=== PATIENT | female | born 1955 | race Caucasian/White ===

== ENCOUNTER 2019-11-17 12:42 | Emergency (ER) | payer MEDICARE, OTHER ==
--- NOTE | 2019-11-17 12:55 | EDM.PDOC ---
ED HPI GENERAL MEDICAL PROBLEM - General Stated Complaint: ER Time Seen by Provider: 11/17/19 12:45 Source of Information: Reports: Patient History Limitations: Reports: No Limitations - History of Present Illness INITIAL COMMENTS - FREE TEXT/NARRATIVE: Pt. presents to ER with complaints of fall with subsequent R femur pain. Pt. states that he has problems with balance which caused to to fall. She states that she has a history of bilateral total hip replacement. She denies any chest pain, shortness of breath, or lightheadedness prior to the fall. She states that she did lightly strike the R posteriolateral head but denies any LOC, nausea, vomiting, or continued pain. No headache. Denies any neck pain. She states that she fell from a standing height in her home. Pt. states that her pain was a "10" on 1-10 scale post fall. She states that her pain is now down to a "7' after dilaudid and the application of a traction splint by EMS. Onset: Today Onset Date: 11/17/19 Location: Reports: Lower Extremity, Right Quality: Reports: Ache, Sharp, Stabbing Severity: Severe Improves with: Reports: Medication, Rest Worsens with: Reports: Movement Right Thigh Pain Score (Numeric/FACES): 5 - Related Data Allergies Allergy/AdvReac Type Severity Reaction Status Date / Time No Known Allergies Allergy Verified 11/17/19 13:02 Home Meds: Home Meds Baclofen 10 mg BEDTIME 11/17/19 [History] Baclofen 20 mg WITHBREAKFAST 11/17/19 [History] FLUoxetine HCl [Fluoxetine HCl] 80 mg DAILY 11/17/19 [History] Nortriptyline 20 mg BEDTIME 11/17/19 [History] Oxybutynin 5 mg BID 11/17/19 [History] ED ROS GENERAL - Review of Systems Review Of Systems: See Below Constitutional: Reports: No Symptoms HEENT: Reports: No Symptoms Respiratory: Reports: No Symptoms Cardiovascular: Reports: No Symptoms Endocrine: Reports: No Symptoms GI/Abdominal: Reports: No Symptoms : Reports: No Symptoms Musculoskeletal: Reports: Leg Pain Skin: Reports: No Symptoms Neurological: Reports: No Symptoms Psychiatric: Reports: No Symptoms Hematologic/Lymphatic: Reports: No Symptoms Immunologic: Reports: No Symptoms ED EXAM, GENERAL - Physical Exam Exam: See Below Exam Limited By: No Limitations General Appearance: Alert, WD/WN, No Apparent Distress Eye Exam: Bilateral Eye: EOMI, Normal Fundi, Normal Inspection, PERRL Nose: Normal Inspection, Normal Mucosa, No Blood Throat/Mouth: Normal Inspection, Normal Lips, Normal Teeth, Normal Gums, Normal Oropharynx, Normal Voice, No Airway Compromise Head: Normocephalic, Other (small hematoma to R posterior scalp.) Neck: Normal Inspection, Supple, Non-Tender, Full Range of Motion Respiratory/Chest: No Respiratory Distress, Lungs Clear, Normal Breath Sounds, No Accessory Muscle Use, Chest Non-Tender Cardiovascular: Normal Peripheral Pulses, Regular Rate, Rhythm, No Edema, No Gallop, No JVD, No Murmur, No Rub GI/Abdominal: Soft, Non-Tender, No Organomegaly, No Distention, No Mass (Female) Exam: Deferred Rectal (Female) Exam: Deferred Back Exam: No: Paraspinal Tenderness, Vertebral Tenderness Extremities: Other (Hare traction splint in place. CMS to foot is intact, the foot is somewhat dusky distal to the ankle hitch, but her capillary refill is still within normal limits at 2-3 sec. Pt. is able to move digits of the foot. ) Neurological: Alert, Oriented, CN II-XII Intact, Normal Cognition, Normal Gait, Normal Reflexes, No Motor/Sensory Deficits Psychiatric: Normal Affect, Normal Mood Skin Exam: Warm, Dry, Intact, Normal Color, No Rash Lymphatic: No Adenopathy Course - Vital Signs Last Recorded V/S: Last Vital Signs Temp 36.6 C 11/17/19 12:44 Pulse 87 11/17/19 12:44 Resp 20 11/17/19 12:44 BP 133/76 11/17/19 12:44 Pulse Ox 94 L 11/17/19 12:44 - Orders/Labs/Meds Labs: Laboratory Tests 11/17/19 11/17/19 11/17/19 Range/Units 12:58 12:58 12:58 WBC 10.4 H (4.0-10.0) x10^3/uL RBC 4.87 (4.00-5.50) x10^6/uL Hgb 13.9 D (12.0-16.0) g/dL Hct 42.7 (33.0-47.0) % MCV 87.7 (78.0-93.0) fL MCH 28.5 (26.0-32.0) pg MCHC 32.6 (32.0-36.0) g/dL RDW Coeff of Hermes 13.4 (10.0-15.0) % Plt Count 266 D (130-400) x10^3/uL Neut % (Auto) 75.2 (50.0-80.0) % Lymph % (Auto) 16.7 L (25.0-50.0) % [place] % (Auto) 6.7 (2.0-11.0) % Eos % (Auto) 1.2 (0.0-4.0) % Baso % (Auto) 0.2 (0.2-1.2) % PT 9.9 L (10.0-12.8) SEC INR 0.9 L (2.0-3.5) Sodium 140 (136-145) mmol/L Potassium 4.5 (3.5-5.1) mmol/L Chloride 101 (98-107) mmol/L Carbon Dioxide 28 (21-32) mmol/L Anion Gap 15.5 (10-20) mmol/L BUN 12 (7-18) mg/dL Creatinine 0.7 (0.55-1.02) mg/dL Est Cr Clr Drug Dosing 79.52 mL/min Estimated GFR (MDRD) > 60 Glucose 108 H (74-106) mg/dL Calcium 8.6 (8.5-10.1) mg/dL Corrected Calcium 8.68 (8.5-10.1) mg/dL Total Bilirubin 0.3 (0.2-1.0) mg/dL AST 14 L (15-37) U/L ALT 29 (14-59) U/L Alkaline Phosphatase 91 (46-116) U/L Total Protein 7.1 (6.4-8.2) g/dL Albumin 3.9 (3.4-5.0) g/dL Globulin 3.2 Albumin/Globulin Ratio 1.22 Meds: Medications Discontinued Medications Generic Name Dose Route Start Last Admin Trade Name Freq PRN Reason Stop Dose Admin Hydromorphone HCl 1 mg 11/17/19 13:15 Dilaudid IVPUSH 11/17/19 13:16 ONETIME ONE - Radiology Interpretation Free Text/Narrative:: midshaft femur fracture of R lower extremity Departure - Departure Time of Disposition: 13:26 Disposition: DC/Tfer to Acute Hospital 02 Clinical Impression: Femur fracture, right - Discharge Information Sepsis Event Note - Focused Exam Vital Signs: Vital Signs Temp Pulse Resp BP Pulse Ox 11/17/19 12:44 36.6 C 87 20 133/76 94 L Date Exam was Performed: 11/17/19 Time Exam was Performed: 13:33 - Problem List Review Problem List Initiated/Reviewed/Updated: Yes - Assessment/Plan Plan: Pt. will be transferred to [facility] in [place]. Dr. May accepts the patient in transfer. [facility] was unable to accept the patient at they had no one who could take care of a periprosthetic fracture. Pain is under good control with IV dilaudid/traction. Pt. will be transported via [facility] ground ambulance.
[2019-11-17 13:23] LABS: CHLORIDE,CL 101 mmol/L (98-107); SODIUM,NA 140 mmol/L (136-145)
[2019-11-17 13:24] LABS: ANION GAP 15.5 mmol/L (10-20)
--- NOTE | 2019-11-17 13:28 | CR ---
[id number] RAD/RAD Femur Right 2V EXAM: 2 VIEWS RIGHT FEMUR INDICATION: FALL, RIGHT MID FEMUR PAIN. COMPARISON: None. DISCUSSION: Partially visualized post surgical changes of the proximal femur. There is an acute obliquely oriented fracture within the mid diaphysis distal to the orthopedic implants. The fracture is impacted with lateral displacement of approximately 1.1 cm. IMPRESSION: 1. Acute obliquely oriented mid diaphysis fracture of the right femur. Juanjo Min DO 11/17/19 1328 Thank you for allowing us to participate in the care of your patient.
[2019-11-17] MEDS: HYDROmorphone 1 MG/ML Syringe IVPUSH ONE (13:40)
== END 2019-11-17 14:20 | disposition short-term general hospital (02) ==
LOC: VM.ED 12:42
DX: S72.301A Unspecified fracture of shaft of right femur, initial encounter for closed fracture (principal); S00.03XA Contusion of scalp, initial encounter; Z96.643 Presence of artificial hip joint, bilateral; W19.XXXA Unspecified fall, initial encounter; W22.8XXA Striking against or struck by other objects, initial encounter
CPT/HCPCS: 36415; 73552; 80053; 85025; 85610; 96374; 99285; J1170; 99283-GF

== ENCOUNTER 2021-01-26 04:26 | Emergency (ER) | payer MEDICARE, OTHER ==
--- NOTE | 2021-01-26 04:38 | EDM.PDOC ---
ED HPI GENERAL MEDICAL PROBLEM - General Chief Complaint: Lower Extremity Injury/Pain Stated Complaint: hip pain Time Seen by Provider: 01/26/21 04:26 Source of Information: Reports: Patient History Limitations: Reports: No Limitations - History of Present Illness INITIAL COMMENTS - FREE TEXT/NARRATIVE: The emergency department by EMS with complaints of left hip injury. Patient recently had a hip replaced approximately 6 weeks ago at [facility] in [place]. Patient was lying in bed and she went to rotate herself and she felt a popping sensation and a huge amount of pain and discomfort on the left lower extremity. Patient was unable to ambulate after that. EMS was contacted for further transportation to the emergency department.Patient denies any falls or injuries to that left hip patient states that she is unable to move that left hip independently without significant amount of pain. Patient denies any CMS concerns but range of motion is extremely limited. Onset: Sudden Quality: Reports: Throbbing Severity: Severe Improves with: Reports: Rest Worsens with: Reports: Movement Associated Symptoms: Reports: No Other Symptoms - Related Data Allergies Allergy/AdvReac Type Severity Reaction Status Date / Time No Known Allergies Allergy Verified 11/17/19 13:02 Home Meds: Home Meds Baclofen 10 mg BEDTIME 11/17/19 [History] Baclofen 20 mg WITHBREAKFAST 11/17/19 [History] FLUoxetine HCl [Fluoxetine HCl] 80 mg DAILY 11/17/19 [History] Nortriptyline 20 mg BEDTIME 11/17/19 [History] Oxybutynin 5 mg BID 11/17/19 [History] Past Medical History Gastrointestinal History: Reports: GERD Genitourinary History: Reports: Other (See Below) Other Genitourinary History: cystitis with hematuria Neurological History: Reports: Other (See Below) Other Neuro History: Ataxia (SCA3) Psychiatric History: Reports: Depression Endocrine/Metabolic History: Reports: Osteopenia Hematologic History: Reports: Anemia, Iron Deficiency - Infectious Disease History Infectious Disease History: Reports: MRSA - Past Surgical History Musculoskeletal Surgical History: Reports: Hip Replacement Review of Systems - Review of Systems Review Of Systems: Comprehensive ROS is negative, except as noted in HPI. Constitutional: Reports: No Symptoms Eyes: Reports: No Symptoms Ears: Reports: No Symptoms Nose: Reports: No Symptoms Mouth/Throat: Reports: No Symptoms Respiratory: Reports: No Symptoms Cardiovascular: Reports: No Symptoms GI/Abdominal: Reports: No Symptoms Genitourinary: Reports: No Symptoms Musculoskeletal: Reports: No Symptoms Skin: Reports: No Symptoms Neurological: Reports: No Symptoms Psychiatric: Reports: No Symptoms ED EXAM, GENERAL - Physical Exam Exam: See Below Exam Limited By: No Limitations General Appearance: Alert, WD/WN, No Apparent Distress Eye Exam: Bilateral Eye: EOMI, PERRL Ears: Normal External Exam, Normal Canal Nose: Normal Inspection, Normal Mucosa, No Blood Throat/Mouth: Normal Inspection, Normal Lips, Normal Teeth, Normal Voice, No Airway Compromise Head: Atraumatic, Normocephalic Respiratory/Chest: No Respiratory Distress, Lungs Clear, Normal Breath Sounds, No Accessory Muscle Use, Chest Non-Tender Cardiovascular: Normal Peripheral Pulses, Regular Rate, Rhythm, No Rub Peripheral Pulses: 4+: Radial (L), Radial (R), Dorsalis Pedis (L), Dorsalis Pedis (R) GI/Abdominal: Normal Bowel Sounds, Soft, Non-Tender, No Organomegaly, No Abnormal Bruit Back Exam: Normal Inspection Neurological: Alert, Oriented Skin Exam: Warm, Dry, Intact Course - Orders/Labs/Meds Orders: Active Orders 24 hr Category Date Time Status Hip Min 1V w Pelvis Lt [CR] Stat Exams 01/26/21 04:32 Taken COMPREHENSIVE METABOLIC PN,CMP [CHEM] Stat Lab 01/26/21 05:00 Received Labs: Laboratory Tests 01/26/21 Range/Units 05:00 WBC 11.3 H (4.0-10.0) x10^3/uL RBC 4.49 (4.00-5.50) x10^6/uL Hgb 12.3 D (12.0-16.0) g/dL Hct 37.9 (33.0-47.0) % MCV 84.4 D (78.0-93.0) fL MCH 27.4 (26.0-32.0) pg MCHC 32.5 (32.0-36.0) g/dL RDW Coeff of Hermes 13.9 (10.0-15.0) % Plt Count 280 (130-400) x10^3/uL Neut % (Auto) 78.4 (50.0-80.0) % Lymph % (Auto) 13.4 L (25.0-50.0) % [place] % (Auto) 6.5 (2.0-11.0) % Eos % (Auto) 1.6 (0.0-4.0) % Baso % (Auto) 0.1 L (0.2-1.2) % Meds: Medications Discontinued Medications Generic Name Dose Route Start Last Admin Trade Name Ramseyq PRN Reason Stop Dose Admin Hydromorphone HCl Confirm 01/26/21 04:53 Hydromorphone 1 Mg/Ml Syringe Administered 01/26/21 04:54 Dose 1 mg .ROUTE .STK-MED ONE Midazolam HCl Confirm 01/26/21 04:53 Midazolam 1 Mg/Ml 2 Ml Sdv Administered 01/26/21 04:54 Dose 2 mg .ROUTE .STK-MED ONE Departure - Departure Time of Disposition: 05:45 Disposition: DC/Tfer to [facility] 02 Condition: Fair Clinical Impression: Hip dislocation, left Qualifiers: Encounter type: initial encounter Qualified Code(s): S73.005A - Unspecified dislocation of left hip, initial encounter - Discharge Information *PRESCRIPTION DRUG MONITORING PROGRAM REVIEWED*: Not Applicable *COPY OF PRESCRIPTION DRUG MONITORING REPORT IN PATIENT EDIN: Not Applicable Forms: ED Department Discharge, Interfacility Transfer EMTALA - My Orders Last 24 Hours: My Active Orders 01/26/21 04:32 Hip Min 1V w Pelvis Lt [CR] Stat 01/26/21 05:00 COMPREHENSIVE METABOLIC PN,CMP [CHEM] Stat - Assessment/Plan Last 24 Hours: My Active Orders 01/26/21 04:32 Hip Min 1V w Pelvis Lt [CR] Stat 01/26/21 05:00 COMPREHENSIVE METABOLIC PN,CMP [CHEM] Stat Assessment:: 1. Left hip injury 2. Left hip dislocation Plan: 1. Labs completed in the ER. Results reviewed with the patient 2. Xray completed in the ER. Results reviewed with the patient 3. IV fluids provided 4. Pain medication given for severe pain and discomfort- 5. Zofran given in the ER to help with nausea [facility]. Patient will be transferred to a higher level of care needing further medical and/or surgical interventions 8. Patient and nursing staff was updated regarding the plan of care 9. Patient and family are agreeable to the above plan of care 10. All questions and concerns were addressed with the patient and family prior to discharge
[2021-01-26] MEDS ORDERED: HYDROmorphone 1 MG/ML Syringe ONE (04:53)
[2021-01-26] MEDS ORDERED: Midazolam 1 MG/ML 2 ML SDV ONE (04:53)
[2021-01-26 05:26] LABS: CHLORIDE,CL 104 mmol/L (98-107); SODIUM,NA 140 mmol/L (136-145)
[2021-01-26 05:28] LABS: ANION GAP 10.8 mmol/L (5-15)
[2021-01-26] MEDS ORDERED: fentaNYL 50 MCG/ML SDV IVPUSH ONE (05:33)
--- NOTE | 2021-01-26 10:31 | CR ---
[id number] RAD/RAD Pelvis 1V W 2V Left Hip EXAM: 2 VIEWS LEFT HIP. INDICATION: LEFT INJURY COMPARISON: None. DISCUSSION: Acute dislocation involving the femoral component of left total hip arthroplasty. The femoral component is dislocated anterolaterally by approximately 6 cm. No evidence of hardware fracture or loosening. Postsurgical changes following total right hip arthroplasty. No evidence of hardware failure loosening. The right hip prosthesis remains in articulatory alignment. IMPRESSION: 1. As above. Juanjo Min DO 01/26/21 1029 Thank you for allowing us to participate in the care of your patient.
== END 2021-01-26 06:35 | disposition short-term general hospital (02) ==
LOC: VM.ED 04:26
DX: S73.005A Unspecified dislocation of left hip, initial encounter (principal); X58.XXXA Exposure to other specified factors, initial encounter
CPT/HCPCS: 36415; 51702; 80053; 85025; 96374; 99283; 99285-25; J3010

== ENCOUNTER 2021-02-17 07:24 | Emergency (ER) | payer MEDICARE, OTHER ==
--- NOTE | 2021-02-17 07:35 | EDM.PDOC ---
ED HPI GENERAL MEDICAL PROBLEM - General Stated Complaint: ER Time Seen by Provider: 02/17/21 07:30 Source of Information: Reports: Patient, EMS, EMS Notes Reviewed, RN, RN Notes Reviewed History Limitations: Reports: No Limitations - History of Present Illness INITIAL COMMENTS - FREE TEXT/NARRATIVE: Patient is a 65-year-old female who presents to ER per [facility] ambulance service with complaint of dislocation of left hip. Patient states she has a prosthetic hip surgery was completed in November of this year. States she was wearing her brace last night, attempted to turn over in bed and the left hip dislocated. States she also dislocated the hip on January 26. Patient had 5 mg of Valium in route per EMS as well as 1 mg of Dilaudid. Patient still rating pain high. Patient admits to some numbness and tingling to the left leg/foot. Onset: Today, Sudden - Related Data Allergies Allergy/AdvReac Type Severity Reaction Status Date / Time No Known Allergies Allergy Verified 01/26/21 06:40 Home Meds: Home Meds Baclofen 10 mg PO BEDTIME 11/17/19 [History] Baclofen 20 mg PO WITHBREAKFAST 11/17/19 [History] FLUoxetine HCl [Fluoxetine HCl] 80 mg PO DAILY 11/17/19 [History] Nortriptyline 20 mg PO BEDTIME 11/17/19 [History] Oxybutynin 5 mg PO BID 11/17/19 [History] Past Medical History Gastrointestinal History: Reports: GERD Genitourinary History: Reports: Other (See Below) Other Genitourinary History: cystitis with hematuria Neurological History: Reports: Other (See Below) Other Neuro History: Ataxia (SCA3) Psychiatric History: Reports: Depression Endocrine/Metabolic History: Reports: Osteopenia Hematologic History: Reports: Anemia, Iron Deficiency - Infectious Disease History Infectious Disease History: Reports: MRSA - Past Surgical History Musculoskeletal Surgical History: Reports: Hip Replacement Social & Family History - Family History Family Medical History: No Pertinent Family History Review of Systems - Review of Systems Review Of Systems: Comprehensive ROS is negative, except as noted in HPI. ED EXAM, GENERAL - Physical Exam Exam: See Below Exam Limited By: No Limitations General Appearance: Alert, WD/WN, No Apparent Distress Eye Exam: Bilateral Eye: EOMI, Normal Inspection Ears: Normal External Exam, Hearing Grossly Normal Nose: Normal Inspection Throat/Mouth: Normal Inspection, Normal Voice, No Airway Compromise Head: Atraumatic, Normocephalic Neck: Normal Inspection, Supple, Non-Tender, Full Range of Motion Respiratory/Chest: No Respiratory Distress, Lungs Clear, Normal Breath Sounds, No Accessory Muscle Use, Chest Non-Tender Cardiovascular: Normal Peripheral Pulses, Regular Rate, Rhythm, No Edema, No Gallop, No JVD, No Murmur, No Rub Peripheral Pulses: 1+: Dorsalis Pedis (L), 2+: Radial (L), Radial (R), Dorsalis Pedis (R) GI/Abdominal: Normal Bowel Sounds, Soft, Non-Tender (Female) Exam: Deferred Rectal (Female) Exam: Deferred Back Exam: Normal Inspection, Full Range of Motion, NT Extremities: Leg Pain (left), Limited Range of Motion (left leg), Other (left leg shortened) Neurological: Alert, Oriented, Normal Cognition Psychiatric: Normal Affect, Normal Mood, Anxious, Tearful Skin Exam: Warm, Dry, Intact, Normal Color, No Rash Lymphatic: No Adenopathy Course - Orders/Labs/Meds Orders: Active Orders 24 hr Category Date Time Status Insert Wright Catheter [Insert Urinary Catheter] [OM.PC] Care 02/17/21 08:00 Ordered Q24H Urinary Catheter Assessment [RC] ASDIRECTED Care 02/17/21 07:53 Active Hip Min 2V or 3V Lt [CR] Stat Exams 02/17/21 07:33 Taken COMPREHENSIVE METABOLIC PN,CMP [CHEM] Stat Lab 02/17/21 08:05 Received CORONAVIRUS COVID-19 RAPID [MOLEC] Stat Lab 02/17/21 08:29 Ordered Lactated Ringers [Ringers, Lactated] 1,000 ml Med 02/17/21 07:53 Active IV ONETIME Medication Orders Lactated Ringer's (Ringers, Lactated) 1,000 mls @ 100 mls/hr IV ONETIME ONE Stop: 02/17/21 17:52 Labs: Laboratory Tests 02/17/21 Range/Units 08:05 WBC 7.6 (4.0-10.0) x10^3/uL RBC 4.75 (4.00-5.50) x10^6/uL Hgb 13.0 (12.0-16.0) g/dL Hct 40.1 (33.0-47.0) % MCV 84.4 (78.0-93.0) fL MCH 27.4 (26.0-32.0) pg MCHC 32.4 (32.0-36.0) g/dL RDW Coeff of Hermes 14.4 (10.0-15.0) % Plt Count 296 (130-400) x10^3/uL Neut % (Auto) 70.2 (50.0-80.0) % Lymph % (Auto) 18.4 L (25.0-50.0) % [place] % (Auto) 8.9 (2.0-11.0) % Eos % (Auto) 2.4 (0.0-4.0) % Baso % (Auto) 0.1 L (0.2-1.2) % Meds: Medications Generic Name Dose Route Start Last Admin Trade Name Freq PRN Reason Stop Dose Admin Lactated Ringer's 1,000 mls @ 100 mls/hr 02/17/21 07:53 Ringers, Lactated IV 02/17/21 17:52 ONETIME ONE Discontinued Medications Generic Name Dose Route Start Last Admin Trade Name Freq PRN Reason Stop Dose Admin Fentanyl 100 mcg 02/17/21 08:07 Fentanyl 100 Mcg/2 Ml Sdv IVPUSH 02/17/21 08:08 ONETIME ONE - Re-Assessments/Exams Free Text/Narrative Re-Assessment/Exam: 02/17/21 08:23 Discussed patient case with Dr. Jaquez in the ER at [facility] who agreed to accept the patient for transfer. Departure - Departure Time of Disposition: 08:24 Disposition: DC/Tfer to Acute Hospital 02 Condition: Fair Clinical Impression: Hip dislocation, left Qualifiers: Encounter type: initial encounter Qualified Code(s): S73.005A - Unspecified dislocation of left hip, initial encounter - Discharge Information *PRESCRIPTION DRUG MONITORING PROGRAM REVIEWED*: No *COPY OF PRESCRIPTION DRUG MONITORING REPORT IN PATIENT EDIN: No Forms: Interfacility Transfer EMTALA - My Orders Last 24 Hours: My Active Orders 02/17/21 07:33 Hip Min 2V or 3V Lt [CR] Stat 02/17/21 07:53 Urinary Catheter Assessment [RC] ASDIRECTED Lactated Ringers [Ringers, Lactated] 1,000 ml IV ONETIME 02/17/21 08:00 Insert Wright Catheter [Insert Urinary Catheter] [OM.PC] Q24H 02/17/21 08:05 COMPREHENSIVE METABOLIC PN,CMP [CHEM] Stat 02/17/21 08:29 CORONAVIRUS COVID-19 RAPID [MOLEC] Stat - Assessment/Plan Last 24 Hours: My Active Orders 02/17/21 07:33 Hip Min 2V or 3V Lt [CR] Stat 02/17/21 07:53 Urinary Catheter Assessment [RC] ASDIRECTED Lactated Ringers [Ringers, Lactated] 1,000 ml IV ONETIME 02/17/21 08:00 Insert Wright Catheter [Insert Urinary Catheter] [OM.PC] Q24H 02/17/21 08:05 COMPREHENSIVE METABOLIC PN,CMP [CHEM] Stat 02/17/21 08:29 CORONAVIRUS COVID-19 RAPID [MOLEC] Stat
[2021-02-17] MEDS: Lactated Ringers 1,000 ML IV ONE (08:05)
[2021-02-17] MEDS: fentaNYL 100 MCG/2 ML SDV IVPUSH ONE (08:32)
--- NOTE | 2021-02-17 08:34 | CR ---
[id number] RAD/RAD Hip Left 2-3V EXAM: RAD Hip Left 2-3V CLINICAL DATA: DISLOCATION OF HIP PROSTHESIS COMPARISON: CORRELATION IS MADE WITH JANUARY 26, 2021 FINDINGS: Dislocation again is seen The lateral view does not clearly demonstrate if the dislocation is anterior or posterior The dislocation actually appears to be superior. IMPRESSION: DISLOCATED PROSTHESIS AGAIN SEEN Perfecto Mueller MD 02/17/21 0832 Thank you for allowing us to participate in the care of your patient.
[2021-02-17 08:38] LABS: CHLORIDE,CL 104 mmol/L (98-107); SODIUM,NA 141 mmol/L (136-145)
[2021-02-17 08:40] LABS: ANION GAP 11.8 mmol/L (5-15)
== END 2021-02-17 08:50 | disposition short-term general hospital (02) ==
LOC: VM.ED 07:24
DX: S73.005A Unspecified dislocation of left hip, initial encounter (principal); Z20.822 Contact with and (suspected) exposure to COVID-19; X58.XXXA Exposure to other specified factors, initial encounter
CPT/HCPCS: 36415; 51702; 80053; 85025; 94760; 96374; 99283; 99285-25; J3010; J7120; U0002

== ENCOUNTER 2021-04-21 05:47 | Emergency (ER) | payer MEDICARE, OTHER ==
[2021-04-21] MEDS ORDERED: fentaNYL 100 MCG/2 ML SDV IVPUSH ONE (06:02)
[2021-04-21] MEDS ORDERED: Ondansetron 4 MG/2 ML SDV IVPUSH ONE (06:02)
--- NOTE | 2021-04-21 06:23 | EDM.PDOC ---
ED HPI GENERAL MEDICAL PROBLEM - General Chief Complaint: Lower Extremity Injury/Pain Stated Complaint: left hip injury Time Seen by Provider: 04/21/21 06:00 Source of Information: Reports: Patient, EMS History Limitations: Reports: No Limitations - History of Present Illness INITIAL COMMENTS - FREE TEXT/NARRATIVE: Patient presents to the ED via EMS with her third hip dislocation of her left hip since [facility]. She states she rolled over in bed and dislocated her hip. She had been wearing hip abduction brace for about a month since her last dislocation on 02/17. She has been transported to [place] each time this occurs. She did have a discussion with orthopedic surgery as to a corrective surgery but nothing has been scheduled at this time. Per her and a picture he has of her last dislocation, she was given heavy sedation and it took several physicians and several attempts to relocate this last time. Unable to do conscious sedation at this facility. Patient has started neurosin 300 mg BID since she was last here and this helps her other co morbid problems. Denies any injury, not been ill recently. 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 Last meds yesterday, does take baclofen Onset: Today Location: Reports: Lower Extremity, Left Severity: Moderate Improves with: Reports: None Worsens with: Reports: Movement Associated Symptoms: Reports: No Other Symptoms Treatments DIRECTOR INVESTOR RELATIONS: Reports: Other (see below) Other Treatments DIRECTOR INVESTOR RELATIONS: Morphine 4mg. Left Hip Pain Score (Numeric/FACES): 10 - Related Data Allergies Allergy/AdvReac Type Severity Reaction Status Date / Time No Known Allergies Allergy Verified 02/17/21 08:34 Home Meds: Home Meds Baclofen 10 mg PO BEDTIME 11/17/19 [History] Baclofen 20 mg PO WITHBREAKFAST 11/17/19 [History] FLUoxetine HCl [Fluoxetine HCl] 80 mg PO DAILY 11/17/19 [History] Nortriptyline 20 mg PO BEDTIME 11/17/19 [History] Oxybutynin 5 mg PO BID 11/17/19 [History] Past Medical History Gastrointestinal History: Reports: GERD Genitourinary History: Reports: Other (See Below) Other Genitourinary History: cystitis with hematuria Neurological History: Reports: Other (See Below) Other Neuro History: Ataxia (SCA3) Psychiatric History: Reports: Depression Endocrine/Metabolic History: Reports: Osteopenia Hematologic History: Reports: Anemia, Iron Deficiency - Infectious Disease History Infectious Disease History: Reports: MRSA - Past Surgical History Musculoskeletal Surgical History: Reports: Hip Replacement Social & Family History - Family History Family Medical History: No Pertinent Family History - Tobacco Use Tobacco Use Status *Q: Never Tobacco User Second Hand Smoke Exposure: No - Recreational Drug Use Recreational Drug Use: No Review of Systems - Review of Systems Review Of Systems: See Below Constitutional: Reports: No Symptoms. Denies: Chills, Fever Eyes: Reports: No Symptoms Ears: Reports: No Symptoms Nose: Reports: No Symptoms Mouth/Throat: Reports: No Symptoms Respiratory: Reports: No Symptoms Cardiovascular: Reports: No Symptoms GI/Abdominal: Reports: No Symptoms Genitourinary: Reports: No Symptoms Musculoskeletal: Reports: Joint Pain (left hip) Skin: Reports: No Symptoms Neurological: Reports: Pre-Existing Deficit ED EXAM, GENERAL - Physical Exam Exam: See Below Exam Limited By: No Limitations General Appearance: Alert Eye Exam: Bilateral Eye: EOMI, Normal Inspection, PERRL Ears: Normal External Exam Nose: Normal Inspection Throat/Mouth: Normal Inspection, Normal Voice, Other (dry mucous membranes) Head: Atraumatic Neck: Normal Inspection Respiratory/Chest: No Respiratory Distress, Lungs Clear, Normal Breath Sounds Cardiovascular: Normal Peripheral Pulses, Regular Rate, Rhythm GI/Abdominal: Normal Bowel Sounds Extremities: Other (left leg with shortening and internal rotation. good peripheral pulses) Course - Vital Signs Last Recorded V/S: Last Vital Signs Temp 36.6 C 04/21/21 05:54 Pulse 88 04/21/21 05:54 Resp 12 04/21/21 05:54 BP 135/85 04/21/21 05:54 Pulse Ox 97 04/21/21 05:54 - Orders/Labs/Meds Orders: Active Orders 24 hr Category Date Time Status Insert Urinary Catheter [OM.PC] Q24H Care 04/21/21 06:15 Ordered Urinary Catheter Assessment [RC] ASDIRECTED Care 04/21/21 06:02 Ordered Hip Min 1V w Pelvis Lt [CR] Stat Exams 04/21/21 05:59 Ordered Meds: Medications Discontinued Medications Generic Name Dose Route Start Last Admin Trade Name Freq PRN Reason Stop Dose Admin Fentanyl 100 mcg 04/21/21 06:02 04/21/21 06:10 Fentanyl 100 Mcg/2 Ml Sdv IVPUSH 04/21/21 06:03 100 mcg ONETIME ONE Administration Ondansetron HCl 4 mg 04/21/21 06:02 04/21/21 06:10 Ondansetron 4 Mg/2 Ml Sdv IVPUSH 04/21/21 06:03 4 mg ONETIME ONE Administration - Radiology Interpretation Free Text/Narrative:: xray with left hip dislocation posterior, no fracture - Re-Assessments/Exams Free Text/Narrative Re-Assessment/Exam: 04/21/21 07:01 patient given fentanyl 100 mcg at arrival. becerra catheter placed. X-ray obtained. posterior dislocation noted. Call to [facility] one call, DR. Wharotn from the ER accepts. Appears the relocation was difficult but done in the ER under sedation. Needs to discuss with Orthopedic surgery definitive plan. EMS for transfer O2 given after a dose of valium 5 mg IVP and repeat of fetanyl 50 mcg for pain. She was much more comfortable but did have decreased respirations Departure - Departure Time of Disposition: 06:41 Disposition: DC/Tfer to Acute Hospital 02 Condition: Fair Clinical Impression: Hip dislocation, left Qualifiers: Encounter type: initial encounter Qualified Code(s): S73.005A - Unspecified dislocation of left hip, initial encounter - Discharge Information *PRESCRIPTION DRUG MONITORING PROGRAM REVIEWED*: Not Applicable *COPY OF PRESCRIPTION DRUG MONITORING REPORT IN PATIENT EDIN: Not Applicable Forms: ED Department Discharge, Interfacility Transfer [facility] Sepsis Event Note (ED) - Evaluation Sepsis Screening Result: No Definite Risk - Focused Exam Vital Signs: Vital Signs Temp Pulse Resp BP Pulse Ox 04/21/21 05:54 36.6 C 88 12 135/85 97 - My Orders Last 24 Hours: My Active Orders 04/21/21 05:59 Hip Min 1V w Pelvis Lt [CR] Stat 04/21/21 06:02 Urinary Catheter Assessment [RC] ASDIRECTED 04/21/21 06:15 Insert Urinary Catheter [OM.PC] Q24H - Assessment/Plan Last 24 Hours: My Active Orders 04/21/21 05:59 Hip Min 1V w Pelvis Lt [CR] Stat 04/21/21 06:02 Urinary Catheter Assessment [RC] ASDIRECTED 04/21/21 06:15 Insert Urinary Catheter [OM.PC] Q24H
[2021-04-21] MEDS ORDERED: fentaNYL 50 MCG/ML SDV IVPUSH ONE (06:46)
[2021-04-21] MEDS ORDERED: Sodium Chloride 0.9% 1,000 ML IV SCH (07:00)
--- NOTE | 2021-04-21 09:29 | CR ---
[id number] RAD/RAD Pelvis W Left Lateral Hip Exam: RAD Pelvis W Left Lateral Hip Indication:DISLOCATION OF LEFT HIP Comparison: February 2021. Discussion/Impression: Total left femoroacetabular arthroplasty. Femoral component is dislocated superior in relation to the acetabular component. No osseous fracture. Findings are similar to examination from February 17, 2021. Right femoroacetabular arthroplasty remains in normal alignment. Shree Fuller MD 04/21/21 0927 Thank you for allowing us to participate in the care of your patient.
== END 2021-04-21 07:30 | disposition short-term general hospital (02) ==
LOC: VM.ED 05:47
DX: S73.005A Unspecified dislocation of left hip, initial encounter (principal); X50.1XXA Overexertion from prolonged static or awkward postures, initial encounter; Y93.51 Activity, roller skating (inline) and skateboarding
CPT/HCPCS: 27265; 51702; 73501; 96374; 96375; 96376; 99283; 99284; J2405; J3010; J3360; J7030

== ENCOUNTER 2021-09-15 22:27 | Emergency (ER) | payer MEDICARE, OTHER ==
[2021-09-15] MEDS ORDERED: HYDROmorphone 1 MG/ML Syringe IVPUSH ONE (22:40)
--- NOTE | 2021-09-15 22:44 | EDM.PDOC ---
ED HPI GENERAL MEDICAL PROBLEM - General Chief Complaint: General Stated Complaint: FALL Time Seen by Provider: 09/15/21 22:36 Source of Information: Reports: Patient, EMS History Limitations: Reports: No Limitations - History of Present Illness INITIAL COMMENTS - FREE TEXT/NARRATIVE: Patient presents to the ED via ems after reportedly falling at home while in the bathroom. She stood up from her wheelchair and slipped on the floor while wearing socks. Did not hit her head, no multiple areas of injury. Left lower leg pain complaints. Given 1 mg IV dilaudid by EMS. Able to move lower right foot, ankle and toes. No complaints of numbness or tingling to the toes. History of hip fractures, spinocerebellar ataxia, need for larger hip prosthetic due to multiple dislocation. Onset: Today, Sudden Location: Reports: Lower Extremity, Right Quality: Reports: Sharp, Stabbing, Throbbing Severity: Severe Improves with: Reports: Cold Therapy, Medication Associated Symptoms: Reports: No Other Symptoms Right Lower Leg Pain Score (Numeric/FACES): 10 - Related Data Allergies Allergy/AdvReac Type Severity Reaction Status Date / Time No Known Allergies Allergy Verified 02/17/21 08:34 Home Meds: Home Meds Baclofen 10 mg PO BEDTIME 11/17/19 [History] Baclofen 20 mg PO WITHBREAKFAST 11/17/19 [History] FLUoxetine HCl [Fluoxetine HCl] 80 mg PO DAILY 11/17/19 [History] Nortriptyline 20 mg PO BEDTIME 11/17/19 [History] Oxybutynin 5 mg PO BID 11/17/19 [History] Past Medical History Gastrointestinal History: Reports: GERD Genitourinary History: Reports: Other (See Below) Other Genitourinary History: cystitis with hematuria Neurological History: Reports: Other (See Below) Other Neuro History: Ataxia (SCA3) Psychiatric History: Reports: Depression Endocrine/Metabolic History: Reports: Osteopenia Hematologic History: Reports: Anemia, Iron Deficiency - Infectious Disease History Infectious Disease History: Reports: MRSA - Past Surgical History Musculoskeletal Surgical History: Reports: Hip Replacement Social & Family History - Family History Family Medical History: No Pertinent Family History ED ROS GENERAL - Review of Systems Review Of Systems: See Below Constitutional: Reports: No Symptoms HEENT: Reports: No Symptoms Respiratory: Reports: No Symptoms Cardiovascular: Reports: No Symptoms Endocrine: Reports: No Symptoms GI/Abdominal: Reports: No Symptoms : Reports: No Symptoms Musculoskeletal: Reports: Leg Pain Skin: Reports: No Symptoms Neurological: Reports: No Symptoms Psychiatric: Reports: No Symptoms Hematologic/Lymphatic: Reports: No Symptoms Immunologic: Reports: No Symptoms ED EXAM, GENERAL - Physical Exam Exam: See Below Exam Limited By: No Limitations General Appearance: Alert, WD/WN, No Apparent Distress Ears: Normal External Exam, Normal Canal, Hearing Grossly Normal, Normal TMs Ear Exam: Bilateral Ear: Auricle Normal, Canal Normal, TM normal Nose: Normal Inspection, Normal Mucosa, No Blood Throat/Mouth: Normal Inspection, Normal Lips, Normal Teeth, Normal Gums, Normal Oropharynx, Normal Voice, No Airway Compromise Head: Atraumatic, Normocephalic Neck: Normal Inspection, Supple, Non-Tender, Full Range of Motion Respiratory/Chest: No Respiratory Distress, Lungs Clear, Normal Breath Sounds, No Accessory Muscle Use, Chest Non-Tender Cardiovascular: Normal Peripheral Pulses, Regular Rate, Rhythm, No Edema, No Gallop, No JVD, No Murmur, No Rub Peripheral Pulses: 2+: Popliteal (R), Posterior Tibial (R), Dorsalis Pedis (R) GI/Abdominal: Normal Bowel Sounds, Soft, Non-Tender, No Organomegaly, No Distention, No Abnormal Bruit, No Mass Back Exam: Normal Inspection, Full Range of Motion, NT Extremities: Normal Inspection, Normal Range of Motion, No Pedal Edema, Normal Capillary Refill, Other (right proximal tib/fib area swollen, slightly deformed, and edema noted) Neurological: Alert, Oriented, CN II-XII Intact, Normal Cognition, Normal Gait, Normal Reflexes, No Motor/Sensory Deficits Psychiatric: Normal Affect, Normal Mood Skin Exam: Warm, Dry, Intact, Normal Color, No Rash Lymphatic: No Adenopathy Course - Vital Signs Last Recorded V/S: Last Vital Signs Temp 36.3 C 09/15/21 22:27 Pulse 72 09/15/21 22:27 Resp 16 09/15/21 22:27 BP 137/83 09/15/21 22:27 Pulse Ox 91 L 09/15/21 22:27 - Orders/Labs/Meds Orders: Active Orders 24 hr Category Date Time Status Tibia Fibula Rt [CR] Stat Exams 09/15/21 22:39 Ordered Meds: Medications Discontinued Medications Generic Name Dose Route Start Last Admin Trade Name Jovita PRN Reason Stop Dose Admin Hydromorphone HCl 1 mg 09/15/21 22:40 09/15/21 22:45 Hydromorphone 1 Mg/Ml Syringe IVPUSH 09/15/21 22:41 1 mg ONETIME ONE Administration - Radiology Interpretation Free Text/Narrative:: x-ray shows complete, comminuted fractures of both the tibia and fibula with dislocation of both as well - Re-Assessments/Exams Free Text/Narrative Re-Assessment/Exam: 09/16/21 00:25 Patient given 1 mg IV dilaudid, after splinting with posterior and stirrup splints, given 2.5 mg valium for complaints of muscle spasms. Departure - Departure Time of Disposition: 00:36 Disposition: DC/Tfer to Other 70 Condition: Good Clinical Impression: Fracture tibia/fibula - Discharge Information *PRESCRIPTION DRUG MONITORING PROGRAM REVIEWED*: Not Applicable *COPY OF PRESCRIPTION DRUG MONITORING REPORT IN PATIENT EDIN: Not Applicable Instructions: Tibial and Fibular Fractures Forms: Interfacility Transfer EMTALA, ED Department Discharge Sepsis Event Note (ED) - Focused Exam Vital Signs: Vital Signs Temp Pulse Resp BP Pulse Ox 09/15/21 22:27 36.3 C 72 16 137/83 91 L ED Communication - ED Communication Date/Time Date: 09/15/21 - Discussed Case With (1) Discussed Case With (1): Admitting Provider (Report called to Dr. Live at [facility] in [place] who has accepted the patient. Satish, her preferred provider not taking admits. No return yet from [facility]) - Problem List & Annotations (1) Fracture, tibia and fibula, proximal SNOMED Code(s): 511001233 Code(s): S82.109A - UNSP FRACTURE OF UPPER END OF UNSP TIBIA, INIT FOR CLOS FX; S82.839A - OTH FRACTURE OF UPPER AND LOWER END OF UNSP FIBULA, INIT Status: Acute Current Visit: Yes Qualifiers: Encounter type: initial encounter Fracture type: closed Laterality: right Qualified Code(s): S82.101A - Unspecified fracture of upper end of right tibia, initial encounter for closed fracture; S82.831A - Other fracture of upper and lower end of right fibula, initial encounter for closed fracture - Problem List Review Problem List Initiated/Reviewed/Updated: Yes - My Orders Last 24 Hours: My Active Orders 09/15/21 22:39 Tibia Fibula Rt [CR] Stat - Assessment/Plan Last 24 Hours: My Active Orders 09/15/21 22:39 Tibia Fibula Rt [CR] Stat Plan: Patient discharged to [facility] for orthopedic intervention. Dr. Live accepting physician.
[2021-09-16] MEDS ORDERED: Sodium Chloride 0.9% 1,000 ML IV ONE (00:15)
--- NOTE | 2021-09-16 08:12 | CR ---
[id number] RAD/RAD Tibia Fibula Right EXAM: RAD Tibia Fibula Right INDICATION: FALL COMPARISON: None. DISCUSSION: Acute mildly comminuted proximal tibia and fibula fractures with up to 10 mm displacement and mild to moderate angulation of both fractures. Partially imaged fixation hardware in the distal femur. Mild tibiotalar osteoarthritis. IMPRESSION: 1. Acute comminuted, displaced and angulated proximal tibia and fibula shaft fractures. Janes Williamson MD 09/16/21 0809 Thank you for allowing us to participate in the care of your patient.
== END 2021-09-16 00:45 | disposition other institution (70) ==
LOC: VM.ED 22:27
DX: S82.451A Displaced comminuted fracture of shaft of right fibula, initial encounter for closed fracture (principal); S82.101A Unspecified fracture of upper end of right tibia, initial encounter for closed fracture; W01.0XXA Fall on same level from slipping, tripping and stumbling without subsequent striking against object, initial encounter; Y92.002 Bathroom of unspecified non-institutional (private) residence as the place of occurrence of the external cause
CPT/HCPCS: 29515; 51702; 73590; 96374; 96375; 99284; 99285; J1170; J3360; 29505